=== PATIENT | female | born 1970 | race Caucasian/White ===

== ENCOUNTER 2024-02-25 10:58 | Outpatient (RCR) | payer OTHER ==
[~2024-02-25 10:58] MED LIST: COLLAGEN 15001 EACH
== END 2024-03-04 ==
LOC: PT 10:58
PROVIDERS: ATTEND Physician Assistant
DX: S83.512D Sprain of anterior cruciate ligament of left knee, subsequent encounter (principal); Z47.89 Encounter for other orthopedic aftercare; M62.81 Muscle weakness (generalized); M25.562 Pain in left knee; M25.662 Stiffness of left knee, not elsewhere classified
CPT/HCPCS: 97110 ×8; G0283 ×2